=== PATIENT | female | born 1985 | race Caucasian/White ===

== ENCOUNTER 2023-12-25 06:38 | Inpatient (IN) | payer OTHER, SELFPAY ==
[2023-12-25] MEDS: LR 1000 IV ×2 (07:15→08:40)
[2023-12-25 07:30] VITALS: BP 111/64; BMI 32.0
[2023-12-25 07:36] LABS: Hematocrit 32.9 % (37.0-47.0); Hemoglobin 11.2 g/dL (12.0-16.0); Mean Corpuscular Hgb 31.8 pg (27.0-31.0); Mean Corpuscular Volume 93.5 fL (81.0-99.0); Platelet Count 216 10^3/uL (130-400); Red Blood Cell Count 3.52 10^6/uL (4.20-5.40); Red Cell Dist. Width 13.7 % (11.5-14.5); White Blood Cell Count 7.4 10^3/uL (4.8-10.8)
[2023-12-25] MEDS: ANCEF 10 IV (08:40)
[2023-12-25] MEDS: BICITRA 30 ML PO (08:41)
[2023-12-25] MEDS: PITOCIN 30 UNITS/NSS 500 ML IV (08:41)
[2023-12-25] MEDS: TYLENOL 1000 MG PO (08:41)
[2023-12-25] MEDS: TORADOL 15 MG IV ×2 (12:16→18:03)
[2023-12-26] MEDS: TORADOL 15 MG IV ×2 (00:04→06:05)
[2023-12-26] MEDS: PERCOCET 5/325 1 TABLET PO ×3 (02:31→17:52)
[2023-12-26] MEDS: MYLICON 80 MG PO ×3 (02:31→11:15)
[2023-12-26 05:07] LABS: Hematocrit 28.1 % (37.0-47.0); Hemoglobin 9.7 g/dL (12.0-16.0); Mean Corp Hgb Conc. 34.5 g/dL (33.0-37.0); Mean Corpuscular Hgb 32.6 pg (27.0-31.0); Mean Corpuscular Volume 94.3 fL (81.0-99.0); Mean Platelet Volume 9.9 fL (7.4-10.4); Platelet Count 196 10^3/uL (130-400); Red Blood Cell Count 2.98 10^6/uL (4.20-5.40); Red Cell Dist. Width 13.5 % (11.5-14.5); White Blood Cell Count 11.9 10^3/uL (4.8-10.8)
[2023-12-26] MEDS: PRENATAL PLUS 1 TABLET PO (08:02)
--- NOTE | 2023-12-26 10:07 | W.PN.ANS.POP ---
Anesthesia Post Operative
- Anesthesia Post Op Note
Vital Signs Stable-See Nursing Note: Yes
Airway Patent: Yes
Adequate Pain Control: Yes
Change in Mental Status: No
Current Postoperative Nausea & Vomiting: No
Anesthesia Complications: No
General Anesthetic Recall: No
Unplanned Admission: No
Post Op Hydration Adequate: Yes
[2023-12-26] MEDS: MOTRIN 600 MG PO ×2 (11:53→17:52)
[2023-12-27] MEDS: MOTRIN 600 MG PO ×3 (00:42→15:27)
[2023-12-27] MEDS: PERCOCET 5/325 1 TABLET PO ×3 (00:42→15:27)
[2023-12-27] MEDS: FEOSOL 325 MG PO (08:35)
[2023-12-27] MEDS: SENOKOT-S 1 TABLET PO (08:35)
[2023-12-27] MEDS: PRENATAL PLUS 1 TABLET PO (08:35)
[2023-12-27] MEDS: MYLICON 80 MG PO (08:36)
[2023-12-27 12:14] LABS: Syphilis/T. pallidum Ab Reflex Negative (Negative)
[2023-12-28] MEDS: MOTRIN 600 MG PO (00:02)
[2023-12-28] MEDS: PERCOCET 5/325 1 TABLET PO (00:02)
--- NOTE | 2023-12-28 07:50 | W.DS.TRANS ---
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
-
Discharge Instructions:
Discharge Diagnosis/Procedures delvery
Instructions:
Stand-Alone Forms: LDRP Delivery
Changes to Home Medications: No
Discharge Medications:
DC Medications w/original date entered in [employer]
Caplet 1 cap PO DAILY Supplement 12/15/19
calcium 1 tab PO DAILY Supplement 04/02/22
acetaminophen 325 mg tablet 650 mg (2 x 325 mg) PO Q4HPRN PRN mild pain #0 tabs 12/28/23
ferrous sulfate 325 mg (65 mg iron) tablet (FeroSul) 325 mg PO DAILY #0 tabs 12/28/23
ibuprofen 600 mg tablet 600 mg PO Q6HPRN PRN cramps #40 tabs 12/28/23
oxycodone-acetaminophen 5 mg-325 mg tablet 1 tab PO Q4HPRN PRN moderate pain #12 tabs 12/28/23
sennosides 8.6 mg-docusate sodium 50 mg tablet (Stool Softener-Stimulant Laxative) 1 tab PO DAILYPRN PRN constipation #0 tabs 12/28/23
simethicone 80 mg chewable tablet 80 mg PO TIDPRN PRN flatulence #0 tabs 12/28/23
Home Medication Changes
Pending Results: No
Total time spent discharging patient (in min): 20
[2023-12-28] MEDS: PRENATAL PLUS 1 TABLET PO (08:11)
[2023-12-28] MEDS: FEOSOL 325 MG PO (08:11)
== END 2023-12-28 11:30 | disposition home or self-care (01) | DRG 787 ==
LOC: LDRP 06:38
PROVIDERS: ADMITTING PHYSICIAN Obstetrics & Gynecology; FAMILY PHYSICIAN Family Medicine
PROC: 10D00Z1 Extraction of Products of Conception, Low, Open Approach (ICD-10-PCS; 2023-12-25)
DX: O34.211 Maternal care for low transverse scar from previous cesarean delivery (principal); D62 Acute posthemorrhagic anemia; N85.8 Other specified noninflammatory disorders of uterus; Z3A.39 39 weeks gestation of pregnancy; Z37.0 Single live birth; O69.81X0 Labor and delivery complicated by cord around neck, without compression, not applicable or unspecified; O90.81 Anemia of the puerperium
CPT/HCPCS: 36415; 85027; 86780; 86850; 86900; 86901; 87086